=== PATIENT | female | born 1945 | race American Indian/Alaskan Native ===

== ENCOUNTER 2018-08-22 17:27 | Emergency (ER) | payer OTHER ==
[2018-08-22 17:47] VITALS: BP 182/87
[2018-08-22] MEDS ORDERED: PERCOCET 5/325 PO STA (20:00)
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
== END 2018-08-23 00:30 | disposition home or self-care (01) ==
LOC: ED 17:27
DX: S46.911A Strain of unspecified muscle, fascia and tendon at shoulder and upper arm level, right arm, initial encounter (principal); S80.01XA Contusion of right knee, initial encounter; I10 Essential (primary) hypertension; V49.9XXA Car occupant (driver) (passenger) injured in unspecified traffic accident, initial encounter; Y93.89 Activity, other specified; Y99.8 Other external cause status; Y92.410 Unspecified street and highway as the place of occurrence of the external cause
CPT/HCPCS: 99283